=== PATIENT | female | born 1985 | race Caucasian/White ===

== ENCOUNTER 2017-06-13 12:45 | Emergency (ER) | payer OTHER ==
[~2017-06-13] VITALS: Ht 160 cm; Wt 59.0 kg
[~2017-06-13 12:45] MED LIST: BACTRIM DS 8001 TA1 PO; CIPRO500 MG PO; CLARITIN-D 10 M1 T21 PO; CLARITIN10 MG PO; CYCLOBENZAPRINE10 MG PO; DOXYCYCLINE MO100 MG PO; FLONASE 0.05% 121 EA NAS; NAPROSYN500 MG PO; NORCO 5-325 TA1 EACH PO; PHENERGAN W/ DE30 ML PO; PREDNICOT10 MG PO; PREVACID30 M1 PO; PRILOSEC20 M1 PO; PYRIDIUM200 MG PO; TYLENOL W/CODE480 ML PO; ZOLOFT50 MG PO
[2017-06-13] MEDS ORDERED: SEPTDS PO (13:07)
[2017-06-13] MEDS ORDERED: DIFLUCAN150 MG PO (13:08)
== END 2017-06-13 13:15 | disposition home or self-care (01) ==
LOC: ED 12:45
DX: L03.012 Cellulitis of left finger (principal); L03.011 Cellulitis of right finger; F17.200 Nicotine dependence, unspecified, uncomplicated; Z79.899 Other long term (current) drug therapy

== ENCOUNTER 2017-10-13 08:36 | Emergency (ER) | payer OTHER ==
[~2017-10-13] VITALS: Ht 160 cm; Wt 59.0 kg
[~2017-10-13 08:36] MED LIST changes: +DIFLUCAN150 MG PO; +SEPTDS PO
[2017-10-13] MEDS ORDERED: BACITRACIN ZIN0.9 GM T (08:55)
[2017-10-13] MEDS ORDERED: KEFLEX500 M1 PO (08:55)
== END 2017-10-13 09:09 | disposition home or self-care (01) ==
LOC: ED 08:36
DX: L30.9 Dermatitis, unspecified (principal); Z79.899 Other long term (current) drug therapy

== ENCOUNTER → 2020-08-09 | Outpatient (CLI) | payer BC ==
[~2020-08-09] MED LIST changes: +BACITRACIN ZIN0.9 GM T; +KEFLEX500 M1 PO
== END | disposition home or self-care (01) ==
LOC: US 13:30
PROVIDERS: ATTEND Nurse Practitioner Family
DX: R10.30 Lower abdominal pain, unspecified (principal)

== ENCOUNTER → 2020-09-03 | Outpatient (CLI) | payer BC | END | disposition home or self-care (01) | LOC: US 14:30 | PROVIDERS: ATTEND Nurse Practitioner Women's Health | DX: N88.8 Other specified noninflammatory disorders of cervix uteri (principal); T83.84XA Pain due to genitourinary prosthetic devices, implants and grafts, initial encounter ==

== ENCOUNTER 2021-10-28 19:56 | Emergency (ER) | payer BC ==
[~2021-10-28] VITALS: Ht 160 cm; Wt 59.0 kg
[2021-10-28] MEDS ORDERED: SINGULAIR4 M1 PO (20:20)
[2021-10-28 21:19] LABS: BILIRUBIN Negative (Negative); BLOOD Trace-Lysed (Negative); CLARITY Cloudy (Clear); COLOR Yellow (Yellow); GLUCOSE Negative (Negative); KETONE 1+ (Negative); LEUKO ESTERASE Negative (Negative); NITRITE Negative (Negative); SPECIFIC GRAVITY 1.025 (1.001-1.030); UROBILINOGEN 0.2 E.U./dl (0.0-1.0)
[2021-10-28 21:19] LABS: BASO # 0.1 10*3/uL (0.0-0.1); BASO % 0.4 % (0.0-1.0); EOS # 0.1 10*3/uL (0.0-0.4); EOS % 0.5 % (1.0-4.0); HEMATOCRIT 42.1 % (37.0-47.0); LYMPH # 0.5 10*3/uL (1.3-4.4); LYMPH % 4.2 % (27.0-41.0); MEAN CELL VOLUME 94.2 fl (81.0-99.0); MEAN CORPUSCULAR HGB 31.8 pg (27.0-31.0); MEAN CORPUSCULAR HGB CONC 33.7 g/dl (33.0-37.0); MEAN PLATELET VOLUME 11.2 fl (9.6-12.3); MONO # 0.9 10*3/uL (0.1-1.0); MONO % 6.8 % (3.0-9.0); NEUT # 10.9 10*3/uL (2.3-7.9); NEUT % 87.9 % (47.0-73.0); PLATELET COUNT AUTOMATED 253 10*3/uL (130-400); RED BLOOD COUNT 4.47 10*6/uL (4.10-5.10); RED CELL DISTRI WIDTH 12.6 % (0-14.5); WHITE BLOOD COUNT 12.4 10*3/uL (4.8-10.8)
[2021-10-28 21:27] LABS: BACTERIA 4+
[2021-10-28 21:28] LABS: EPITHELIAL CELLS 16-20; WBC 0-2 wbc/hpf (0-5)
[2021-10-28 21:36] LABS: ALKALINE PHOSPHATASE 47 U/L (45-117); BUN 11 mg/dl (7-24); CHLORIDE 106 mmol/L (98-107); LIPASE 61 U/L (73-393); POTASSIUM 3.7 mmol/L (3.5-5.1); SGOT/AST 17 IU/L (3-35); SGPT/ALT 21 U/L (12-78); SODIUM 137 mmol/L (136-145); TOTAL PROTEIN 7.7 gm/dL (6.4-8.2)
== END 2021-10-29 00:57 | disposition home or self-care (01) ==
LOC: ED 19:56
PROVIDERS: Nurse Practitioner Family
DX: B34.9 Viral infection, unspecified (principal); R10.31 Right lower quadrant pain; Z79.899 Other long term (current) drug therapy

== ENCOUNTER → 2021-11-11 | Outpatient (CLI) | payer BC ==
[~2021-11-11] MED LIST changes: +SINGULAIR4 M1 PO
== END | disposition home or self-care (01) ==
LOC: MRI 09:48
PROVIDERS: ATTEND Nurse Practitioner Family
DX: N28.89 Other specified disorders of kidney and ureter (principal); N28.1 Cyst of kidney, acquired